=== PATIENT | male | born 1975 | race Caucasian/White ===

== ENCOUNTER 2019-04-11 01:58 | Emergency (ER) | payer MEDICAID, OTHER ==
[2019-04-11] MEDS: DIPHTH/TET/ACEL PERTUSS (ADULT) 0.5 ML VIAL IM* (02:38)
== END 2019-04-11 02:45 | disposition home or self-care (01) ==
LOC: FTE 01:58
DX: S80.862A Insect bite (nonvenomous), left lower leg, initial encounter (principal); M79.604 Pain in right leg; M79.605 Pain in left leg; W57.XXXA Bitten or stung by nonvenomous insect and other nonvenomous arthropods, initial encounter; Y92.89 Other specified places as the place of occurrence of the external cause; Z23 Encounter for immunization
CPT/HCPCS: 90471; 90715; 99283-25